=== PATIENT | male | born 1965 | race Caucasian/White ===

== ENCOUNTER 2017-07-19 14:25 | Inpatient (IN) | payer OTHER ==
[~2017-07-19] VITALS: Ht 177.8 cm; Wt 93.4 kg
[2017-07-19] MEDS ORDERED: IBUPROFEN800 MG (14:48)
[2017-07-19] MEDS ORDERED: NAPROXEN500 M1 (14:48)
== END 2017-07-23 16:44 | disposition home or self-care (01) | DRG 690 ==
LOC: ER 14:25 → MEDJ 07-20 12:22
DX: N39.0 Urinary tract infection, site not specified (principal); R31.0 Gross hematuria; B96.29 Other Escherichia coli [E. coli] as the cause of diseases classified elsewhere